=== PATIENT | female | born 2000 | race Caucasian/White ===

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

== ENCOUNTER 2020-01-06 18:36 | Emergency (ER) | payer MEDICAID ==
[2020-01-06] MEDS ORDERED: ONDANSETRON 4 MG TAB.RAPDIS PO ONE (19:03)
--- NOTE | 2020-01-06 19:05 | ER Document Report ---
ED Medical Screen (RME) - General Chief Complaint: Abdominal Pain Stated Complaint: ABDOMINAL PAIN,NAUSEA Time Seen by Provider: 01/06/20 19:01 Primary Care Provider: FANY STRAUSS DO [Primary Care Provider] - Follow up as needed Mode of Arrival: Ambulatory Information source: Patient Notes: 19-year-old female presents to ED for complaint of right-sided abdominal pain times a week. She states it is a level 2/5 at this time. She states sometimes it is sharp but right now is just dull. She states she has vomited for the last 2 days she vomited twice today. She states she does not have any fever has not had any fever. She does not smoke drink or use any drugs. She does have a history of asthma. She states her last menstrual period was 2 weeks ago. She i s alert oriented respirations regular nonlabored speaking in full sentences. Patient will be treated with some Zofran and the. Area and labs and urine will be obtained. I have greeted and performed a rapid initial assessment of this patient. A comprehensive ED assessment and evaluation of the patient, analysis of test results and completion of medical decision making process will be conducted by an additional ED providers. TRAVEL OUTSIDE OF THE [place] IN LAST 30 DAYS: No - Related Data Allergies/Adverse Reactions: paper tape Allergy (Mild, Uncoded 01/06/20 18:59) Past Medical History - Social History Chew tobacco use (# tins/day): No Frequency of alcohol use: None Drug Abuse: None Pulmonary Medical History: Reports: Hx Asthma Renal/ Medical History: Denies: Hx Peritoneal Dialysis Musculoskeltal Medical History: Reports Hx Musculoskeletal Trauma Psychiatric Medical History: Reports: Hx Attention Deficit Hyperactivity Disorder, Hx Bipolar Disorder, Hx Depression, Hx Schizophrenia - Immunizations Immunizations up to date: Yes Hx Diphtheria, Pertussis, Tetanus Vaccination: Yes - 2018 Physical Exam - Vital signs Vitals: Temp Pulse Resp BP Pulse Ox 99.1 F 109 H 18 135/73 H 99 01/06/20 18:58 01/06/20 18:58 01/06/20 18:58 01/06/20 18:58 01/06/20 18:58 Course - Vital Signs Vital signs: Temp Pulse Resp BP Pulse Ox 99.1 F 109 H 18 135/73 H 99 01/06/20 18:59 01/06/20 18:58 01/06/20 18:58 01/06/20 18:58 01/06/20 18:58 Doctor's Discharge - Discharge Referrals: FANY STRAUSS DO [Primary Care Provider] - Follow up as needed
--- NOTE | 2020-01-06 19:36 | ER Document Report ---
ED GI/ - General Chief Complaint: Abdominal Pain Stated Complaint: ABDOMINAL PAIN,NAUSEA Time Seen by Provider: 01/06/20 19:01 Primary Care Provider: FANY STRAUSS DO [NO LOCAL MD] - Follow up as needed Mode of Arrival: Ambulatory Information source: Patient TRAVEL OUTSIDE OF THE [place] IN LAST 30 DAYS: No - HPI Patient complains to provider of: Abdominal pain - Related Data Allergies/Adverse Reactions: paper tape Allergy (Mild, Uncoded 01/06/20 18:59) Past Medical History - General Information source: Patient - Social History Smoking Status: Never Smoker Chew tobacco use (# tins/day): No Frequency of alcohol use: None Drug Abuse: None Lives with: Family Family History: Reviewed & Not Pertinent Patient has homicidal ideation: No Pulmonary Medical History: Reports: Hx Asthma Renal/ Medical History: Denies: Hx Peritoneal Dialysis Musculoskeletal Medical History: Reports Hx Musculoskeletal Trauma Psychiatric Medical History: Reports: Hx Attention Deficit Hyperactivity Disorder, Hx Bipolar Disorder, Hx Depression, Hx Schizophrenia - Immunizations Immunizations up to date: Yes Hx Diphtheria, Pertussis, Tetanus Vaccination: Yes - 2018 Review of Systems - Review of Systems Constitutional: No symptoms reported Cardiovascular: No symptoms reported Respiratory: No symptoms reported Gastrointestinal: Abdominal pain, Nausea, Vomiting Genitourinary: No symptoms reported Female Genitourinary: No symptoms reported -: Yes All other systems reviewed and negative Physical Exam - Vital signs Vitals: Temp Pulse Resp BP Pulse Ox 99.1 F 109 H 18 135/73 H 99 01/06/20 18:58 01/06/20 18:58 01/06/20 18:58 01/06/20 18:58 01/06/20 18:58 - General General appearance: Appears well, Alert In distress: Mild - HEENT Head: Normocephalic, Atraumatic Eyes: Normal Pupils: PERRL - Respiratory Respiratory status: No respiratory distress Chest status: Nontender Breath sounds: Normal Chest palpation: Normal - Cardiovascular Rhythm: Tachycardia Heart sounds: Normal auscultation Murmur: No Friction rub: No Normal capillary refill: Yes - Abdominal Inspection: Obese Distension: No distension Bowel sounds: Normal Tenderness: Tender - Tender to palpation to RUQ no guarding, no rebound,, [place]'s sign. No: Guarding, Rebound Organomegaly: No organomegaly - Back Back: Normal, Nontender. No: CVA tenderness - Neurological Neuro grossly intact: Yes Cognition: Normal Orientation: AAOx4 [place] Coma Scale Eye Opening: Spontaneous [place] Coma Scale Verbal: Oriented Debora Coma Scale Motor: Obeys Commands [place] Coma Scale Total: 15 Speech: Normal Motor strength normal: LUE, RUE, LLE, RLE Sensory: Normal - Skin Skin Temperature: Warm Skin Moisture: Dry Skin Color: Normal Course - Re-evaluation Re-evalutation: 01/06/20 21:42 Patient resting comfortably decreased pain, able to tolerate po fluids, reviewed all lab and ultrasound results with patient. Counseled on bland diet, outpatient follow up with General Surgery as discussed, medications as prescribed, Given strict return to the emergency room, return for any new or worsening symptoms. All questions were answered. Patient verbalizes understanding and agrees with plan of care. 01/06/20 21:44 - Vital Signs Vital signs: Temp Pulse Resp BP Pulse Ox 99.1 F 109 H 18 135/73 H 99 01/06/20 18:59 01/06/20 18:58 01/06/20 18:58 01/06/20 18:58 01/06/20 18:58 - Laboratory Result Diagrams: 01/06/20 19:30 01/06/20 19:30 Laboratory results interpreted by me: 01/06/20 01/06/20 19:30 19:30 WBC 11.0 H RBC 5.30 H MCV 72 L MCH 23.8 L RDW 17.3 H Sodium 135.8 L - Diagnostic Test Radiology reviewed: Reports reviewed Discharge - Discharge Clinical Impression: Nausea Cholelithiases Qualifiers: Cholecystitis presence: without cholecystitis Biliary obstruction: without biliary obstruction Condition: Stable Disposition: HOME, SELF-CARE Instructions: Gallbladder Disease ([facility]), Low-Fat Diet ([facility]) Additional Instructions: [place] diet, no fatty or greasy foods, Follow up with General surgery, call tomorrow for a follow up appointment. Return for any new or worsening symptoms. Referrals: FANY STRAUSS DO [NO LOCAL MD] - Follow up as needed JAMIL MONTANO MD [ACTIVE STAFF] - Follow up tomorrow (call for a follow up ap [facility] )
[2020-01-06 19:49] LABS: ABSOLUTE BASOPHILS # (AUTO) 0.1 10^3/uL (0.0-0.2); ABSOLUTE EOSINOPHILS # (AUTO) 0.3 10^3/uL (0.0-0.6); ABSOLUTE LYMPHOCYTES (AUTO) 3.3 10^3/uL (0.5-4.7); ABSOLUTE MONOCYTES (AUTO) 0.6 10^3/uL (0.1-1.4); ABSOLUTE NEUT (AUTO) 6.7 10^3/uL (1.7-8.2); BASOPHILS % (AUTO) 0.7 % (0-2); EOSINOPHILS % (AUTO) 2.3 % (0-6); HEMOGLOBIN 12.6 g/dL (12.0-15.5); LYMPHOCYTES % (AUTO) 30.3 % (13-45); MEAN CORPUSCULAR HEMOGLOBIN 23.8 pg (27.0-33.4); MEAN CORPUSCULAR HGB CONC 33.1 g/dL (32.0-36.0); MEAN CORPUSCULAR VOLUME 72 fl (80-97); MONOCYTES % (AUTO) 5.7 % (3-13); PLATELET COUNT 237 10^3/uL (150-450); RED CELL DISTRIBUTION WIDTH 17.3 % (11.5-14.0); TOTAL CELLS COUNTED % (AUTO) 100 %
[2020-01-06 19:49] LABS: APPEARANCE,URINE SLIGHTLY-CLOUDY; BILIRUBIN,URINE NEGATIVE (NEGATIVE); COLOR,URINE YELLOW; GLUCOSE, URINE NEGATIVE (NEGATIVE); KETONES,URINE NEGATIVE (NEGATIVE); PROTEIN,URINE NEGATIVE (NEGATIVE); URINE SPECIFIC GRAVITY 1.024; UROBILINOGEN,URINE NEGATIVE mg/dL (<2.0)
[2020-01-06] MEDS ORDERED: RINGERS SOLUTION,LACTATED 1,000 ML IV ONE (20:03)
[2020-01-06 20:12] LABS: ALKALINE PHOSPHATASE 86 U/L (50-135); ANION GAP 9 (5-19); ASPARTATE AMINO TRANSFERASE 17 U/L (5-30); BILIRUBIN,TOTAL 0.3 mg/dL (0.2-1.3); BLOOD UREA NITROGEN 16 mg/dL (7-20); CALCIUM 9.3 mg/dL (8.4-10.2); CARBON DIOXIDE 26 mmol/L (22-30); CHLORIDE 101 mmol/L (98-107); GLUCOSE 101 mg/dL (75-110); POTASSIUM 4.2 mmol/L (3.6-5.0); TOTAL PROTEIN 7.2 g/dL (6.3-8.2)
--- NOTE | 2020-01-06 21:15 | RADIOLOGY REPORT (SQ) ---
EXAM DESCRIPTION: US ABDOMEN DOPPLER LIMITED COMPLETED DATE/TME: 01/06/2020 20:02 CLINICAL HISTORY: 19 years Female RUQ pain COMPARISON: None. TECHNIQUE: Transabdominal grayscale imaging were performed to evaluate the right upper quadrant. FINDINGS: Fatty infiltration of the liver. Pancreas is partially obscured by bowel gas. The visualized orbits are unremarkable. Aorta is normal in caliber. Contracted gallbladder. Common duct measures 3 mm. Right kidney is unremarkable without hydronephrosis. IMPRESSION: Fatty infiltration of the liver. Contracted gallbladder with stones. No additional evidence of acute process Study is limited by bowel gas
[2020-01-06] MEDS ORDERED: ONDANSETRON ODT 4 MG TAB (6 TAB/ER DISP) PO PRN (21:46)
[2020-01-06 22:25] VITALS: BP 146/77
== END 2020-01-06 22:25 | disposition home or self-care (01) ==
LOC: ER 18:36
DX: K80.20 Calculus of gallbladder without cholecystitis without obstruction (principal); R11.2 Nausea with vomiting, unspecified; R10.11 Right upper quadrant pain; R10.811 Right upper quadrant abdominal tenderness; R00.0 Tachycardia, unspecified; J45.909 Unspecified asthma, uncomplicated; Z91.048 Other nonmedicinal substance allergy status
CPT/HCPCS: 99284; 96360; 36415; 82150; 83690; 85025; 81025; 80053; 81001; 76705; 93976; S0119; J7120

== ENCOUNTER 2020-02-13 11:34 | Day surgery (SDC) | payer MEDICAID ==
[~2020-02-13 11:34] MED LIST: ACETAMINOPHEN 325 MG TABLET PO PRN; CEFAZOLIN 1 GM/D5W RTU 1 GM/50 ML RTUPB IV PRN; DEXAMETHASONE SOD PHOSPHATE INJ 4 MG/1 ML VIAL ONE; GLYCOPYRROLATE 1 MG/5 ML VIAL ONE; NEOSTIGMINE METHYLSULFATE 10 MG/10 ML VIAL ONE; ONDANSETRON HCL INJ/PF 4 MG/2 ML SDV ONE; ROCURONIUM BROMIDE INJ 50 MG/5 ML VIAL IV ONE; SUCCINYLCHOLINE CHLORIDE INJ 200 MG/10 ML VIAL ONE
[2020-02-13] MEDS ORDERED: CEFAZOLIN 1 GM/D5W RTU 1 GM/50 ML RTUPB IV ONE (11:47)
[2020-02-13] MEDS ORDERED: FENTANYL CITRATE INJ/PF 250 MCG/5 ML AMPULE ONE (12:34)
[2020-02-13] MEDS ORDERED: MIDAZOLAM 2 MG/2 ML INJ ONE (12:34)
[2020-02-13] MEDS ORDERED: PROPOFOL INJ 200 MG/20 ML VIAL IV ONE (12:34)
[2020-02-13] MEDS ORDERED: BUPIVACAINE HCL 0.25 % INJ/PF (2.5 MG/1 ML) 30 ML VIAL ONE (12:38)
[2020-02-13] MEDS ORDERED: DIPHENHYDRAMINE HCL 50 MG/ML VIAL IV PRN (13:26)
[2020-02-13] MEDS ORDERED: FENTANYL CITRATE INJ/PF 100 MCG/2 ML AMPUL IV PRN ×3 (13:26)
[2020-02-13] MEDS ORDERED: PROMETHAZINE HCL INJ 25 MG/1 ML VIAL IV PRN ×2 (13:26)
[2020-02-13] MEDS ORDERED: OXYCODONE-ACETAMINOPHEN 5-325 MG TABLET PO PRN ×3 (13:26→14:06)
[2020-02-13] MEDS ORDERED: MEPERIDINE HCL/PF INJ 25 MG/1 ML DISP.SYRIN IV PRN (13:26)
--- NOTE | 2020-02-13 13:55 | Operative Report ---
Operative Report DATE OF SURGERY: 02/13/20 PREOPERATIVE DIAGNOSIS: Symptomatic cholelithiasis with cholecystitis POSTOPERATIVE DIAGNOSIS: Same OPERATION: Laparoscopic cholecystectomy SURGEON: SHIRA GARCIA PUNCH OUT CREW MEMBER: NEFTALI MIRELES ANESTHESIA: GA TISSUE REMOVED OR ALTERED: 1 gallbladder with contents COMPLICATIONS: None ESTIMATED BLOOD LOSS: Scant INTRAOPERATIVE FINDINGS: See below PROCEDURE: After obtaining informed consent, the patient was taken to the operating room. General Anesthesia was induced; the arms were extended, and the abdomen was exposed, and prepped and draped in a sterile fashion. Instrumentation was set up for laparoscopic cholecystectomy. Surgical plan and surgical timeout were conducted. A vertical incision was made above the umbilicus, and a verres needle was inserted uneventfully into the peritoneal cavity. Pneumoperitoneum was established. The verres needle was removed and a 5 mm trocar was inserted and a 5 mm flexible laparoscope was inserted. Visualization of the peritoneal cavity confirmed safe uneventful entry. Under direct visualization 2 additional 5 mm ports were established, one in the subxiphoid position and second in the subcostal position. A grasper was placed on the fundus of the gallbladder and the gallbladder is elevated over the right surface of the liver; a second grasper was used to grasp the infundibulum of the gallbladder. Visualization of the hepato biliary area anatomy appeared normal. Visualization was somewhat challenging due to the patient's weight and her abdominal fat; the neck of the gallbladder and junction with the cystic duct was dissected out. The Cystic artery was in its usual location, medial and cephalad to the cystic duct. The cystic artery was surrounded with a right angle clamp, clipped twice proximally, once distally and divided with laparoscopic scissors. We now opened the triangle of [place] by dividing the peritoneal reflection on both the medial and lateral sides of the cystic duct infundibular junction. The critical view was obtained. Photos were taken. 2 small holes were made in the cystic duct during dissection. For this reason we elected to take the gallbladder down from the fundus. This was done using the top-down approach. Eventually we had the gallbladder suspended solely from the cystic duct. Photos taken. A 0 PDS Endoloop was placed on the gallbladder side of the cystic duct and secured. The cystic duct was now transected. The gallbladder was moved to the side, and a second Endoloop was placed on the cystic duct stump, proximal to the 2 small holes previously referenced. We took pictures of the cystic duct with the secured Endoloop in position. Graspers were repositioned and the gallbladder was removed uneventfully from the abdominal cavity through the super umbilical port site incision. The specim en was examined, then passed off to pathology for permanent analysis. We returned to the peritoneal cavity check for bleeding, and evidence of bile leak, and there was none. We Confirmed satisfactory placement of clips on cystic duct and cystic artery were secured . Final photos were obtained. At this point we felt the operation was complete. The subcutaneous tissue was then anesthetized with quarter percent Marcaine Sponge and needle counts are correct. All ports removed under direct visualization pneumoperitoneum evacuated, and 5 mm port wounds closed with 3-0 Vicryl suture, benzoin and Steri-Strips. The patient was extubated, and taken to the recovery room in stable condition. The physician daycare assistant, Ms. Godwin, provided assistance during this case by: Assisting and port insertion, retracting tissue, instillation of local anesthesia and closure of skin incisions.
--- NOTE | 2020-02-13 14:06 | Discharge Summary ---
Discharge Summary (SDC) - Discharge Final Diagnosis: Cholelithiasis Date of Surgery: 02/13/20 Discharge Date: 02/13/20 Condition: Good Treatment or Instructions: [facility] [address] [place] [id number] Discharge Instructions: Laparoscopic Surgery 1. General Information: a. DO NOT DRIVE a car or operate dangerous machinery for 3-4 days or while taking narcotic pain pills. b. DO NOT consume alcohol, tranquilizers, sleeping medications or any non- prescribed medications for 24 hours unless approved by your doctor or as long as taking narcotic prescription medications. c. DO NOT make important decisions or sign any important papers for the first 24 hours after surgery. d. When discharged home the same day of surgery have a responsible person with you for the first night. 2. Activity Restrictions: 2 weeks . a. NO heavy lifting, straining abdominal muscles, bending over a lot, yard work, house work, or sports for [address] for 3-4 days. c. It is fine to go for walks, up and down steps, ride in a car. d. Elevate your head when sleeping/resting. 3. Treatment: a. You may shower 24 hours after surgery, no baths or swimming for 2 weeks. Remove band-aids or dressings before shower but leave paper strips (steri- strips) on the skin to fall off on their own. If still on at postoperative visit they will be removed then. b. Drainage of fluid or blood is not unusual from an incision. If occurs, you can clean with peroxide and cotton ball daily and cover with dry gauze until the wound seals. c. If a lot of bleeding occurs, you can hold pressure with a gauze or cloth over the site for 10 minutes and it will usually stop. If bleeding continues you will need to call for possible evaluation in office or emergency room. 4. Medications: a. __Toradol__ may be taken for pain as needed, one tablet every 6 hours. Do not take additional NSAIDs with Toradol. You may take Tylenol as needed. b. You should resume all normal medications unless a change is specified by your doctors. 5. Diet: Begin with clear liquids and may progress to your normal diet if not nauseated. No high fat, high protein foods the day of surgery. 6. The following may occur after laparoscopic surgery: a. Shoulder or upper back ache from retained gas that should resolve in 1-2 days b. Soreness and bruising at incision sites will resolve with time. c. Scrotal swelling (labia in women) and bruising is often seen after hernia surgery. d. Sore throat e. Fatigue may last days to weeks. f. Difficulty urinating may occur and may need to come into emergency room for urinary catheter placement. 7. Notify Physician If: a. Worsening or pain not improved with pain medication b. Persistent nausea and vomiting c. Fever above 101 d. Persistent bleeding or swelling at operative site e. Unable to urinate and uncomfortable bladder 6-8 hours after surgery 8..Follow Up Care: a. Schedule a follow up appointment with your doctor for 2 weeks. In the event of any postoperative problems or questions or you may call the office during business hours or the On-Call physician evenings and weekends at [facility]. [facility] I understand the instructions for my postoperative care as described above and a copy has been given to me. Patient/Significant Other Witness Date Prescriptions: Ketorolac Tromethamine [Toradol 10 mg Tablet] 10 mg PO Q6HP PRN #20 tablet PRN Reason: Referrals: DANIEL SCOTT NP [Primary Care Provider] - Discharge Diet: Other (Comments) - start clear liquids and low fat Discharge Activity: Balance Activity w/Rest, No Lifting Over 10 Pounds, No Lifting/Push/Pulling, Walk Frequently Report the Following to Your Physician Immediately: Nausea, Vomiting, Increase in Pain, Fever over 101 Degrees, Unusual Bleeding, Redness, Swelling, Warmth, Increased Soreness
[2020-02-13] MEDS: FENTANYL CITRATE INJ/PF 100 MCG/2 ML AMPUL ONE ×2 (14:07→14:12)
[2020-02-13] MEDS ORDERED: KETOROLAC TROMETHAMINE INJ/PF 30 MG/1 ML SDV ONE (14:07)
[2020-02-13] MEDS ORDERED: ALBUTEROL SULFATE 0.083% NEB 2.5 MG/3 ML AMPUL NEB ONE (14:17)
[2020-02-13] MEDS ORDERED: PROMETHAZINE HCL INJ 25 MG/1 ML VIAL ONE (15:06)
[2020-02-13] MEDS ORDERED: OXYCODONE-ACETAMINOPHEN 5-325 MG TABLET ONE (15:06)
[2020-02-13 16:44] VITALS: BP 161/89
== END 2020-02-13 16:40 | disposition home or self-care (01) ==
LOC: OROUT 11:34
PROVIDERS: ATTEND Surgery
DX: K80.10 Calculus of gallbladder with chronic cholecystitis without obstruction (principal); J45.909 Unspecified asthma, uncomplicated; E66.9 Obesity, unspecified
CPT/HCPCS: 87635; 81025; 88304 ×2; 00790; 47562; J2250; J0690; J3490 ×3; J1100; J3010 ×2; J1885; J2710; J2550; J0330; J2405; J2704; C9803; 790

== ENCOUNTER 2020-03-10 18:00 | Emergency (ER) | payer MEDICAID ==
[2020-03-10] MEDS ORDERED: NORMAL SALINE 1000 ML 1,000 ML IV ONE (19:26)
[2020-03-10] MEDS ORDERED: METOCLOPRAMIDE HCL 10 MG TABLET PO ONE (19:26)
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
--- NOTE | 2020-03-10 20:21 | RADIOLOGY REPORT (SQ) ---
US PELVIS HISTORY: Early . Pelvic pain. COMPARISON: None. TECHNIQUE: Grayscale, color Doppler, and spectral Doppler ultrasound images of the pelvis were obtained. FINDINGS: There is an intrauterine gestational sac with a yolk sac and pole visualized. The crown-rump length measures 0.27 cm corresponding to 5 weeks 6 days. There is suggestion of heart rate of 118 bpm. Both ovaries are normal in size and contain normal follicles, with the right ovary measuring 1.7 x 1.7 cm and the left ovary measuring 2.7 x 2.6 cm. Normal color Doppler blood flow is seen in both ovaries. There is a 2.1 cm likely corpus luteum cyst in the left ovary. No free fluid is seen. IMPRESSION: 1. Findings suggestive of a single live IUP with estimated gestational age 5 weeks 6 days. 2. 2.1 cm likely corpus luteum cyst in the left ovary, for which no follow-up imaging is needed.
[2020-03-10 20:26] LABS: ABSOLUTE BASOPHILS # (AUTO) 0.1 10^3/uL (0.0-0.2); ABSOLUTE EOSINOPHILS # (AUTO) 0.3 10^3/uL (0.0-0.6); ABSOLUTE LYMPHOCYTES (AUTO) 2.7 10^3/uL (0.5-4.7); ABSOLUTE MONOCYTES (AUTO) 0.7 10^3/uL (0.1-1.4); ABSOLUTE NEUT (AUTO) 6.7 10^3/uL (1.7-8.2); BASOPHILS % (AUTO) 0.6 % (0-2); EOSINOPHILS % (AUTO) 2.7 % (0-6); HEMATOCRIT 36.7 % (36.0-47.0); LYMPHOCYTES % (AUTO) 26.1 % (13-45); MEAN CORPUSCULAR HGB CONC 32.6 g/dL (32.0-36.0); MEAN CORPUSCULAR VOLUME 74 fl (80-97); MONOCYTES % (AUTO) 6.4 % (3-13); PLATELET COUNT 254 10^3/uL (150-450); RED BLOOD COUNT 4.98 10^6/uL (3.72-5.28); RED CELL DISTRIBUTION WIDTH 18.6 % (11.5-14.0); SEGMENTED NEUTROPHILS % (AUTO) 64.2 % (42-78); TOTAL CELLS COUNTED % (AUTO) 100 %; WHITE BLOOD COUNT 10.4 10^3/uL (4.0-10.5)
[2020-03-10 20:52] LABS: ALBUMIN 3.8 g/dL (3.7-5.6); ALKALINE PHOSPHATASE 73 U/L (50-135); ANION GAP 7 (5-19); ASPARTATE AMINO TRANSFERASE 18 U/L (5-30); BILIRUBIN,TOTAL 0.2 mg/dL (0.2-1.3); BLOOD UREA NITROGEN 10 mg/dL (7-20); CALCIUM 9.4 mg/dL (8.4-10.2); CARBON DIOXIDE 26 mmol/L (22-30); CHLORIDE 103 mmol/L (98-107); GLUCOSE 112 mg/dL (75-110); POTASSIUM 4.3 mmol/L (3.6-5.0); TOTAL PROTEIN 6.7 g/dL (6.3-8.2)
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
[2020-03-10 22:31] VITALS: BP 141/75
== END 2020-03-10 22:31 | disposition home or self-care (01) ==
LOC: ER 18:00
DX: O21.9 Vomiting of pregnancy, unspecified (principal); O26.891 Other specified pregnancy related conditions, first trimester; R10.9 Unspecified abdominal pain; R19.7 Diarrhea, unspecified; R10.31 Right lower quadrant pain; R53.1 Weakness; R42 Dizziness and giddiness; R00.0 Tachycardia, unspecified; O99.511 Diseases of the respiratory system complicating pregnancy, first trimester; J45.909 Unspecified asthma, uncomplicated; Z3A.01 Less than 8 weeks gestation of pregnancy
CPT/HCPCS: 99284; 96360; 96361; 36415; 84702; 85025; 80053; 76817; J3490; J7030

== ENCOUNTER 2020-03-21 18:46 | Emergency (ER) | payer OTHER, MEDICAID ==
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
[2020-03-22 02:07] VITALS: BP 131/84
--- NOTE | 2020-03-24 10:11 | RADIOLOGY REPORT (SQ) ---
EXAM DESCRIPTION: HAND 2 VIEWS IMAGES COMPLETED DATE/TIME: 03/24/2020 9:51 am REASON FOR STUDY: WRONG HAND IMAGES COMPARISON: None. EXAM PARAMETERS: NUMBER OF VIEWS: Two view. TECHNIQUE: AP and lateral radiographic images acquired of the right hand. LIMITATIONS: None. FINDINGS: MINERALIZATION: Normal. BONES: No acute fracture or dislocation. No worrisome bone lesions. No significant osteophytes. JOINTS: No erosions. No herman-articular osteopenia. No chondrocalcinosis. SOFT TISSUES: No swelling. No calcifications. OTHER: No other significant finding. IMPRESSION: Negative two views of the right hand. TECHNICAL DOCUMENTATION: JOB ID: [id number] 2010 [employer]- All Rights Reserved Reading location - IP/workstation name: [email or web address]
== END 2020-03-22 02:06 | disposition home or self-care (01) ==
LOC: ER 18:46
DX: O26.91 Pregnancy related conditions, unspecified, first trimester (principal); S39.81XA Other specified injuries of abdomen, initial encounter; S60.051A Contusion of right little finger without damage to nail, initial encounter; V89.2XXA Person injured in unspecified motor-vehicle accident, traffic, initial encounter; Z3A.08 8 weeks gestation of pregnancy
CPT/HCPCS: 99283

== ENCOUNTER 2020-05-01 19:36 | Emergency (ER) | payer MEDICAID, OTHER ==
[2020-05-01] MEDS ORDERED: NORMAL SALINE 1000 ML 1,000 ML IV ONE (20:20)
--- NOTE | 2020-05-01 20:21 | ER Document Report ---
ED Medical Screen (RME) - General Chief Complaint: Vaginal Pain Stated Complaint: VAGINAL PROBLEM Time Seen by Provider: 05/01/20 20:16 Primary Care Provider: DANIEL SCOTT NP [Primary Care Provider] - Follow up as needed Mode of Arrival: Ambulatory Information source: Patient Notes: Patient presents 13 weeks G2, P1. Patient reports right lower pelvic pain that started today. Patient states pain is been off and on throughout the day. Patient denies any fever or urinary symptoms. Patient denies any vaginal bleeding or discharge. Patient reports nausea and vomiting x1 episode. I have greeted and performed a rapid initial assessment of this patient. A comprehensive ED assessment and evaluation of the patient, analysis of test results and completion of the medical decision making process will be conducted by additional ED providers. TRAVEL OUTSIDE OF THE [place] IN LAST 30 DAYS: No - Related Data Allergies/Adverse Reactions: paper tape Allergy (Mild, Uncoded 03/10/20 19:20) Past Medical History - Past Medical History Cardiac Medical History: Denies: Hx Coronary Artery Disease, Hx Heart Attack, Hx Hypertension Pulmonary Medical History: Reports: Hx Asthma - USES INHALERS Denies: Hx Bronchitis, Hx COPD, Hx Pneumonia Neurological Medical History: Denies: Hx Cerebrovascular Accident, Hx Seizures Renal/ Medical History: Denies: Hx Peritoneal Dialysis Musculoskeltal Medical History: Denies Hx Arthritis, Reports Hx Musculoskeletal Trauma Psychiatric Medical History: Reports: Hx Attention Deficit Hyperactivity Disorder, Hx Bipolar Disorder, Hx Depression, Hx Schizophrenia - Immunizations Immunizations up to date: Yes Hx Diphtheria, Pertussis, Tetanus Vaccination: Yes - 2017 Physical Exam - Vital signs Vitals: Temp Pulse Resp BP Pulse Ox 98.2 F 103 H 20 142/62 H 100 05/01/20 19:59 05/01/20 19:59 05/01/20 19:59 05/01/20 19:59 05/01/20 19:59 - Abdominal Inspection: Gravid female, Morbidly Obese Tenderness: Tender - Right lower pelvic tenderness Course - Vital Signs Vital signs: Temp Pulse Resp BP Pulse Ox 98.2 F 103 H 20 142/62 H 100 05/01/20 19:59 05/01/20 19:59 05/01/20 19:59 05/01/20 19:59 05/01/20 19:59 Doctor's Discharge - Discharge Referrals: WITTLER,DANIEL, BOOKKEEPERS SUPERVISOR [Primary Care Provider] - Follow up as needed
[2020-05-01 21:16] LABS: ABSOLUTE EOSINOPHILS # (AUTO) 0.2 10^3/uL (0.0-0.6); ABSOLUTE LYMPHOCYTES (AUTO) 2.2 10^3/uL (0.5-4.7); ABSOLUTE MONOCYTES (AUTO) 0.5 10^3/uL (0.1-1.4); ABSOLUTE NEUT (AUTO) 6.1 10^3/uL (1.7-8.2); BASOPHILS % (AUTO) 0.5 % (0-2); EOSINOPHILS % (AUTO) 2.7 % (0-6); HEMATOCRIT 36.3 % (36.0-47.0); HEMOGLOBIN 11.8 g/dL (12.0-15.5); LYMPHOCYTES % (AUTO) 24.3 % (13-45); MEAN CORPUSCULAR HEMOGLOBIN 24.8 pg (27.0-33.4); MEAN CORPUSCULAR HGB CONC 32.6 g/dL (32.0-36.0); MEAN CORPUSCULAR VOLUME 76 fl (80-97); MONOCYTES % (AUTO) 5.9 % (3-13); PLATELET COUNT 201 10^3/uL (150-450); RED BLOOD COUNT 4.78 10^6/uL (3.72-5.28); RED CELL DISTRIBUTION WIDTH 17.7 % (11.5-14.0); SEGMENTED NEUTROPHILS % (AUTO) 66.6 % (42-78); TOTAL CELLS COUNTED % (AUTO) 100 %; WHITE BLOOD COUNT 9.2 10^3/uL (4.0-10.5)
--- NOTE | 2020-05-01 21:17 | RADIOLOGY REPORT (SQ) ---
EXAM DESCRIPTION: US LESS THAN 14 WEEKS COMPLETED DATE/TME: 05/01/2020 20:18 CLINICAL HISTORY: 20 years, Female, RLQ pain COMPARISON: Prior pelvic ultrasound dated 04/18/2019 TECHNIQUE: Axial 2-D grayscale images of the pelvis were acquired. Doppler was utilized. LIMITATIONS: None. FINDINGS: Uterus measures 12.3 x 10.0 x 8.4 cm in size. Cervix is closed, measuring 2.6 cm in length. A single intrauterine gestational sac is identified with measurements as follows: [place]-rump length: 7.6 cm heart rate is 158 bpm Estimated gestational age is 13 weeks and 4 days for an estimated date of delivery of 11/02/2020 Right ovary measures 4.8 x 2.9 x 3.3 cm in size. It demonstrates normal echogenicity and normal low resistance arterial waveforms/venous flow. Left ovary measures 3.4 x 2.5 x 2.4 cm in size. It also demonstrates normal echogenicity and normal low resistance arterial waveforms/venous flow. No significant free fluid is identified within the imaged pelvis. IMPRESSION: Single live intrauterine , as above described. No acute findings. However, cervical length is borderline short at 2.6 cm. copyright 2010 [employer] All Rights Reserved
[2020-05-01 21:27] LABS: APPEARANCE,URINE CLOUDY; BILIRUBIN,URINE NEGATIVE (NEGATIVE); GLUCOSE, URINE NEGATIVE (NEGATIVE); KETONES,URINE NEGATIVE (NEGATIVE); LEUKOCYTE ESTERASE,URINE MODERATE (NEGATIVE); NITRITE,URINE NEGATIVE (NEGATIVE); PROTEIN,URINE NEGATIVE (NEGATIVE); URINE SPECIFIC GRAVITY 1.024; UROBILINOGEN,URINE NEGATIVE mg/dL (<2.0)
[2020-05-01 21:32] LABS: ADD MANUAL MICROSCOPIC YES; COLOR,URINE YELLOW
[2020-05-01 21:33] LABS: ALBUMIN 3.7 g/dL (3.5-5.0); ALKALINE PHOSPHATASE 69 U/L (38-126); ANION GAP 9 (5-19); ASPARTATE AMINO TRANSFERASE 16 U/L (14-36); BACTERIA,URINE TRACE /HPF; BILIRUBIN,DIRECT 0.3 mg/dL (0.0-0.4); BILIRUBIN,TOTAL 0.3 mg/dL (0.2-1.3); BLOOD UREA NITROGEN 10 mg/dL (7-20); CALCIUM 9.7 mg/dL (8.4-10.2); CARBON DIOXIDE 25 mmol/L (22-30); CHLORIDE 104 mmol/L (98-107); GLUCOSE 89 mg/dL (75-110); POTASSIUM 4.7 mmol/L (3.6-5.0); RBC,URINE NONE SEEN /HPF; TOTAL PROTEIN 6.5 g/dL (6.3-8.2)
--- NOTE | 2020-05-01 22:49 | ER Document Report ---
ED General - General Chief Complaint: Abdominal Pain Stated Complaint: VAGINAL PROBLEM Time Seen by Provider: 05/01/20 20:16 Primary Care Provider: DANIEL SCOTT NP [NURSE PRACTITIONER] - Follow up as needed Mode of Arrival: Ambulatory TRAVEL OUTSIDE OF THE [place] IN LAST 30 DAYS: No - HPI Notes: Patient is a 20-year-old female who presents the emergency department for evaluation. She is approximately 13 weeks , she presents for sudden onset of right pelvic pain. She described it as sharp and stabbing occasionally, but it is a constant very dull ache. Nothing seems to make it better or worse. She tried Tylenol without significant relief. She denies any associated vaginal discharge or vaginal bleeding. She has been seen by the health department, states she had a pelvic exam as well as gonorrhea and chlamydial testing which were negative. She has had some nausea and vomiting, which has been normal throughout her . - Related Data Allergies/Adverse Reactions: paper tape Allergy (Mild, Uncoded 03/10/20 19:20) Home Medications: , unisom, allergy med, vit b6 Past Medical History - General Information source: Patient - Social History Smoking Status: Never Smoker Family History: Reviewed & Not Pertinent - Past Medical History Cardiac Medical History: Denies: Hx Coronary Artery Disease, Hx Heart Attack, Hx Hypertension Pulmonary Medical History: Reports: Hx Asthma - USES INHALERS Denies: Hx Bronchitis, Hx COPD, Hx Pneumonia Neurological Medical History: Denies: Hx Cerebrovascular Accident, Hx Seizures Renal/ Medical History: Denies: Hx Peritoneal Dialysis Musculoskeletal Medical History: Denies Hx Arthritis, Reports Hx Musculoskeletal Trauma Psychiatric Medical History: Reports: Hx Attention Deficit Hyperactivity Disorder, Hx Bipolar Disorder, Hx Depression, Hx Schizophrenia - Immunizations Immunizations up to date: Yes Hx Diphtheria, Pertussis, Tetanus Vaccination: Yes - 2018 Review of Systems - Review of Systems Constitutional: No symptoms reported EENT: No symptoms reported Cardiovascular: No symptoms reported Respiratory: No symptoms reported Gastrointestinal: See HPI Genitourinary: No symptoms reported Female Genitourinary: See HPI Musculoskeletal: No symptoms reported Skin: No symptoms reported Neurological/Psychological: No symptoms reported Physical Exam - Vital signs Vitals: Temp Pulse Resp BP Pulse Ox 98.2 F 103 H 20 142/62 H 100 05/01/20 19:59 05/01/20 19:59 05/01/20 19:59 05/01/20 19:59 05/01/20 19:59 - Notes Notes: This is a morbidly obese female who appears her stated age, no acute distress. Vital signs reviewed, please refer to chart. Head is normocephalic, atraumatic. Pupils equal round, reactive to light. Neck is supple without meningismus. Heart is regular rate and rhythm. Lungs are clear to auscultation bilaterally. Abdomen is obese, nontender, normoactive bowel sounds throughout. Extremities without cyanosis, clubbing. Posterior calves are nontender. Peripheral pulses are equal. Skin is warm and dry. Patient is awake, alert, neurological exam is nonfocal. Course - Re-evaluation Re-evalutation: 05/01/20 22:51 Patient presents to the emergency department for evaluation. She had laboratory investigations over through triage. Imaging revealed a normal intrauterine gestation, normal ovaries, there was some cervical shortening. I explained this to the patient, but certainly there is nothing to do about that at this point. I also talked her about her blood pressure being elevated. She needs to continue to keep an eye on this, follow up closely with OB, she may warrant treatment for gestational hypertension. She voiced understanding. Otherwise, she is to return the emergency department worsening or new concerning symptoms of any sort. - Vital Signs Vital signs: Temp Pulse Resp BP Pulse Ox 98.2 F 103 H 20 142/62 H 100 05/01/20 19:59 05/01/20 19:59 05/01/20 19:59 05/01/20 19:59 05/01/20 19:59 - Laboratory Result Diagrams: 05/01/20 20:57 05/01/20 20:57 Laboratory results interpreted by me: 05/01/20 05/01/20 20:57 20:57 Hgb 11.8 L MCV 76 L MCH 24.8 L RDW 17.7 H Ur Leukocyte Esterase MODERATE H Urine Ascorbic Acid 20 H - Diagnostic Test Radiology reviewed: Reports reviewed Radiology results interpreted by me: 05/01/20 22:52 Obstetrics Ultrasound 05/01/20 20:18 IMPRESSION: Single live intrauterine , as above described. No acute findings. However, cervical length is borderline short at 2.6 cm. copyright 2011 [employer] All Rights Reserved Discharge - Discharge Clinical Impression: Abdominal pain affecting , Elevated blood pressure affecting in second trimester, antepartum Condition: Stable Disposition: HOME, SELF-CARE Instructions: Pelvic Pain in and Round Ligament Pain ([facility]) Additional Instructions: Your blood pressure was elevated here today. Please keep a record of that at home as discussed, and discussed this with your OB during your appointment next week. Your ultrasound and blood work failed to reveal any significant abnormalities. Tylenol as needed for pain. Follow-up with OB as scheduled. If you develop increased pain, vaginal bleeding, or any other new or concerning sym ptoms, please return immediately to the ER for further evaluation. Referrals: DANIEL SCOTT, DIRECTOR OF FINANCIAL PLANNING [NURSE PRACTITIONER] - Follow up as needed
[2020-05-01 22:51] LABS: CHLAM PCR NOT DETECTED (NOT DETECT)
[2020-05-01 23:52] VITALS: BP 141/78
== END 2020-05-01 23:24 | disposition home or self-care (01) ==
LOC: ER 19:36
DX: O26.892 Other specified pregnancy related conditions, second trimester (principal); R10.2 Pelvic and perineal pain; O16.2 Unspecified maternal hypertension, second trimester; O21.9 Vomiting of pregnancy, unspecified; O99.212 Obesity complicating pregnancy, second trimester; E66.01 Morbid (severe) obesity due to excess calories; O99.512 Diseases of the respiratory system complicating pregnancy, second trimester; J45.909 Unspecified asthma, uncomplicated; Z79.899 Other long term (current) drug therapy; Z91.048 Other nonmedicinal substance allergy status; Z3A.00 Weeks of gestation of pregnancy not specified
CPT/HCPCS: 36415; 76801; 80053; 81001; 85025; 87491; 87591; 99284

== ENCOUNTER 2020-06-22 23:22 | Emergency (ER) | payer MEDICAID ==
--- NOTE | 2020-06-23 00:58 | ER Document Report ---
ED General - General Chief Complaint: Constipation Stated Complaint: CONSTIPATION,ABDOMNAL PAIN Time Seen by Provider: 06/23/20 00:43 Primary Care Provider: [facility] [Provider Group] - Follow up as needed Mode of Arrival: Ambulatory Information source: Patient TRAVEL OUTSIDE OF THE [place] IN LAST 30 DAYS: No - HPI Notes: Patient is a 20-year-old female who is 20 weeks and presents with constipation. Patient states she has not had a bowel movement in 7 days. She tried a suppository earlier this morning with no relief. Patient states she had constipation in her first and had relief with suppositories. She reports abdominal discomfort and pressure. She also endorses nausea and vomiting but states this has been normal throughout . She denies chest pain, shortness of breath, fever, and dysuria. Patient reports a history of preeclampsia in her first and has had high blood pressure so far with this . - Related Data Allergies/Adverse Reactions: paper tape Allergy (Mild, Uncoded 03/10/20 19:20) Home Medications: asthma Past Medical History - General Information source: Patient - Social History Smoking Status: Never Smoker Frequency of alcohol use: None Drug Abuse: None Family History: Reviewed & Not Pertinent Patient has homicidal ideation: No - Past Medical History Cardiac Medical History: Denies: Hx Coronary Artery Disease, Hx Heart Attack, Hx Hypertension Pulmonary Medical History: Reports: Hx Asthma - USES INHALERS Denies: Hx Bronchitis, Hx COPD, Hx Pneumonia Neurological Medical History: Denies: Hx Cerebrovascular Accident, Hx Seizures Renal/ Medical History: Denies: Hx Peritoneal Dialysis Musculoskeletal Medical History: Denies Hx Arthritis, Reports Hx Musculoskeletal Trauma Psychiatric Medical History: Reports: Hx Attention Deficit Hyperactivity Disorder, Hx Bipolar Disorder, Hx Depression, Hx Schizophrenia - Immunizations Immunizations up to date: Yes Hx Diphtheria, Pertussis, Tetanus Vaccination: Yes - 2018 Review of Systems - Review of Systems Constitutional: No symptoms reported EENT: No symptoms reported Cardiovascular: No symptoms reported Respiratory: No symptoms reported Gastrointestinal: See HPI Genitourinary: No symptoms reported Female Genitourinary: No symptoms reported Musculoskeletal: No symptoms reported Skin: No symptoms reported Hematologic/Lymphatic: No symptoms reported Neurological/Psychological: No symptoms reported Physical Exam - Vital signs Vitals: Temp Pulse Resp BP Pulse Ox 97.8 F 114 H 18 148/82 H 99 06/22/20 23:31 06/22/20 23:31 06/22/20 23:31 06/22/20 23:31 06/22/20 23:31 - Notes Notes: PHYSICAL EXAMINATION: VITALS: Vitals reviewed and tachycardia noted. GENERAL: Well-appearing, well-nourished and in no acute distress. HEAD: Atraumatic, normocephalic. ENT: Nares patent. Moist mucous membranes. Oropharynx clear without exudates. LUNGS: Breath sounds clear to auscultation bilaterally and equal. No wheezes rales or rhonchi. HEART: Tachycardia with regular rhythm without murmurs. ABDOMEN: Soft, nontender, normoactive bowel sounds. No guarding, no rebound. No masses appreciated. EXTREMITIES: Normal range of motion, no pitting or edema. No cyanosis. NEUROLOGICAL: No focal neurological deficits. Moves all extremities spontaneously and on command. PSYCH: Normal mood, normal affect. SKIN: Warm, Dry, normal turgor, no rashes or lesions noted. Course - Re-evaluation Re-evalutation: 06/23/20 00:58 patient is a 20-year-old female who is 20 weeks and presents with constipation. She has not had a bowel movement in 7 days even after attempts of using a suppository. Patient is tachycardic with a HR 114, vital signs are otherwise unremarkable. On exam, abdomen is soft, nontender with normoactive BS in all four quadrants. I consulted with my supervising physician, Dr. Lux concerning this patient and she recommends soapsuds enema with Miralax and colace at home. I discussed the option for enema with the patient and she is in agreement. Patient received about 200mls of the enema before she had to go. She is reporting a large bowel movement with significant relief. I recommended she take Miralax and colace over the counter for continued relief and to increase her fiber and fluid intake. Patient will be discharged home. Return precautions and follow up instructions given. Patient understands and is in agreement with plan. - Vital Signs Vital signs: Temp Pulse Resp BP Pulse Ox 97.9 F 95 18 142/80 H 99 06/23/20 02:45 06/23/20 02:45 06/23/20 02:45 06/23/20 02:45 06/23/20 02:45 Discharge - Discharge Clinical Impression: Qualifiers: Weeks of gestation: 20 weeks Qualified Code(s): Z3A.20 - 20 weeks gestation of Constipation during Qualifiers: Trimester: second trimester Qualified Code(s): O99.612 - Diseases of the digestive system complicating , second trimester Condition: Stable Disposition: HOME, SELF-CARE Instructions: Constipation ([facility]) Additional Instructions: Take Miralax and colace over the counter for constipation. Increase your fiber and fluid intake. Follow up with your TOOL ROOM ATTENDANT this week. Referrals: [facility] [Provider Group] - Follow up as needed
[2020-06-23 03:02] VITALS: BP 142/80
== END 2020-06-23 03:02 | disposition home or self-care (01) ==
LOC: ER 23:22
DX: O99.612 Diseases of the digestive system complicating pregnancy, second trimester (principal); K59.00 Constipation, unspecified; O21.2 Late vomiting of pregnancy; O26.892 Other specified pregnancy related conditions, second trimester; R00.0 Tachycardia, unspecified; O16.2 Unspecified maternal hypertension, second trimester; O99.512 Diseases of the respiratory system complicating pregnancy, second trimester; J45.909 Unspecified asthma, uncomplicated; Z79.899 Other long term (current) drug therapy; Z91.048 Other nonmedicinal substance allergy status; Z3A.20 20 weeks gestation of pregnancy
CPT/HCPCS: 99282

== ENCOUNTER 2020-06-30 16:51 | Emergency (ER) | payer MEDICAID ==
[2020-06-30 17:03] VITALS: BP 144/86
== END 2020-06-30 17:46 | disposition left against medical advice (07) ==
LOC: ER 16:51
DX: Z53.21 Procedure and treatment not carried out due to patient leaving prior to being seen by health care provider (principal); K59.00 Constipation, unspecified; R19.5 Other fecal abnormalities

== ENCOUNTER 2020-08-06 14:14 | Emergency (ER) | payer MEDICAID ==
--- NOTE | 2020-08-06 14:56 | ER Document Report ---
ED Medical Screen (RME) - General Chief Complaint: Abdominal Pain Stated Complaint: ABDOMINAL PAIN,RECTAL PAIN Time Seen by Provider: 08/06/20 14:49 Primary Care Provider: FANY STRAUSS DO [Primary Care Provider] - Follow up as needed TRAVEL OUTSIDE OF THE [place] IN LAST 30 DAYS: No - HPI Notes: 08/06/20 14:54 20-year-old female to the emergency department with complaints of progressively worsening rectal pain, constipation, lower abdominal pain for the past 11 days. She is 25 weeks and has really been struggling with constipation in this . She states that she has been taking laxatives and MiraLAX and she has not had a bowel movement for 11 days. She has been before and does not feel like this is contractions. She denies any vaginal bleeding. She denies any fevers or chills. She admits to nausea but denies vomiting. She states that she feels like she is going to have diarrhea but still has not had any effective movements. She states her rectum is very painful. 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 Brief medical screening exam reveals an obese gravid female with mild tenderness to palpation to the lower abdomen. She is very uncomfortable and standing swelling in triage. She states that her pain is predominantly within her rectum. I performed a brief medical screening exam on the patient determined that the patient needs further evaluation and management by main side provider. I have placed initial orders to help expedite care. - Related Data Allergies/Adverse Reactions: paper tape Allergy (Mild, Uncoded 03/10/20 19:20) Past Medical History - Social History Chew tobacco use (# tins/day): No Frequency of alcohol use: None Drug Abuse: None - Past Medical History Cardiac Medical History: Denies: Hx Coronary Artery Disease, Hx Heart Attack, Hx Hypertension Pulmonary Medical History: Reports: Hx Asthma - USES INHALERS Denies: Hx Bronchitis, Hx COPD, Hx Pneumonia Neurological Medical History: Denies: Hx Cerebrovascular Accident, Hx Seizures Renal/ Medical History: Denies: Hx Peritoneal Dialysis Musculoskeltal Medical History: Denies Hx Arthritis, Reports Hx Musculoskeletal Trauma Psychiatric Medical History: Reports: Hx Attention Deficit Hyperactivity Disorder, Hx Bipolar Disorder, Hx Depression, Hx Schizophrenia - Immunizations Immunizations up to date: Yes Hx Diphtheria, Pertussis, Tetanus Vaccination: Yes - 2018 Physical Exam - Vital signs Vitals: Temp Pulse Resp BP Pulse Ox 98.5 F 120 H 22 H 132/81 H 100 08/06/20 14:26 08/06/20 14:26 08/06/20 14:26 08/06/20 14:26 08/06/20 14:26 Course - Vital Signs Vital signs: Temp Pulse Resp BP Pulse Ox 98.5 F 120 H 22 H 132/81 H 100 08/06/20 14:26 08/06/20 14:26 08/06/20 14:26 08/06/20 14:26 08/06/20 14:26 Doctor's Discharge - Discharge Referrals: FANY STRAUSS DO [Primary Care Provider] - Follow up as needed
[2020-08-06 16:41] LABS: ABSOLUTE EOSINOPHILS # (AUTO) 0.1 10^3/uL (0.0-0.6); ABSOLUTE LYMPHOCYTES (AUTO) 0.8 10^3/uL (0.5-4.7); ABSOLUTE MONOCYTES (AUTO) 0.7 10^3/uL (0.1-1.4); ABSOLUTE NEUT (AUTO) 10.6 10^3/uL (1.7-8.2); BASOPHILS % (AUTO) 0.2 % (0-2); EOSINOPHILS % (AUTO) 0.5 % (0-6); HEMATOCRIT 35.9 % (36.0-47.0); HEMOGLOBIN 11.7 g/dL (12.0-15.5); LYMPHOCYTES % (AUTO) 6.4 % (13-45); MEAN CORPUSCULAR HEMOGLOBIN 26.2 pg (27.0-33.4); MEAN CORPUSCULAR HGB CONC 32.6 g/dL (32.0-36.0); MEAN CORPUSCULAR VOLUME 80 fl (80-97); MONOCYTES % (AUTO) 6.1 % (3-13); PLATELET COUNT 200 10^3/uL (150-450); RED BLOOD COUNT 4.47 10^6/uL (3.72-5.28); RED CELL DISTRIBUTION WIDTH 16.5 % (11.5-14.0); SEGMENTED NEUTROPHILS % (AUTO) 86.8 % (42-78); TOTAL CELLS COUNTED % (AUTO) 100 %; WHITE BLOOD COUNT 12.2 10^3/uL (4.0-10.5)
[2020-08-06] MEDS ORDERED: LIDOCAINE 4% CREAM 5 GM TUBE TP ONE (16:56)
[2020-08-06 16:57] LABS: ALBUMIN 3.4 g/dL (3.5-5.0); ALKALINE PHOSPHATASE 116 U/L (38-126); ANION GAP 8 (5-19); ASPARTATE AMINO TRANSFERASE 16 U/L (14-36); BILIRUBIN,DIRECT 0.2 mg/dL (0.0-0.4); BILIRUBIN,TOTAL 0.6 mg/dL (0.2-1.3); BLOOD UREA NITROGEN 5 mg/dL (7-20); CALCIUM 9.2 mg/dL (8.4-10.2); CARBON DIOXIDE 22 mmol/L (22-30); CHLORIDE 104 mmol/L (98-107); GLUCOSE 85 mg/dL (75-110); POTASSIUM 4.2 mmol/L (3.6-5.0); TOTAL PROTEIN 6.4 g/dL (6.3-8.2)
--- NOTE | 2020-08-06 17:08 | ER Document Report ---
ED General - General Chief Complaint: Abdominal Pain Stated Complaint: ABDOMINAL PAIN,RECTAL PAIN Time Seen by Provider: 08/06/20 14:49 Primary Care Provider: FANY STRAUSS DO [Primary Care Provider] - Follow up as needed Mode of Arrival: Ambulatory Information source: Patient TRAVEL OUTSIDE OF THE [place] IN LAST 30 DAYS: No - HPI Notes: Patient presents with abdominal pain as well as rectal pain. She states she is currently 27 weeks and that she has had problems with constipation. She states she has had problems with constipation with other pregnancies as well. She has tried multiple [id number] products such as enemas, suppositories, magnesium citrate and Metamucil with no relief. She called her SENIOR MANAGING DIRECTOR today who referred her to the emergency department. Patient states due to the chronic problems with constipation she has developed an anal fissure. He states his anal fissure is a constant pain. Is worse with bowel movements and better without. It is sharp. It is moderate to severe. - Related Data Allergies/Adverse Reactions: paper tape Allergy (Mild, Uncoded 03/10/20 19:20) Past Medical History - General Information source: Patient - Social History Smoking Status: Never Smoker Chew tobacco use (# tins/day): No Frequency of alcohol use: None Drug Abuse: None Family History: Reviewed & Not Pertinent - Past Medical History Cardiac Medical History: Denies: Hx Coronary Artery Disease, Hx Heart Attack, Hx Hypertension Pulmonary Medical History: Reports: Hx Asthma - USES INHALERS Denies: Hx Bronchitis, Hx COPD, Hx Pneumonia Neurological Medical History: Denies: Hx Cerebrovascular Accident, Hx Seizures Renal/ Medical History: Denies: Hx Peritoneal Dialysis Musculoskeletal Medical History: Denies Hx Arthritis, Reports Hx Musculoskeletal Trauma Psychiatric Medical History: Reports: Hx Attention Deficit Hyperactivity Disorder, Hx Bipolar Disorder, Hx Depression, Hx Schizophrenia - Immunizations Immunizations up to date: Yes Hx Diphtheria, Pertussis, Tetanus Vaccination: Yes - 2018 Review of Systems - Review of Systems Constitutional: denies: Chills, Fever Cardiovascular: denies: Chest pain, Palpitations Respiratory: denies: Cough, Short of breath -: Yes All other systems reviewed and negative Physical Exam - Vital signs Vitals: Temp Pulse Resp BP Pulse Ox 98.5 F 120 H 22 H 132/81 H 100 08/06/20 14:26 08/06/20 14:26 08/06/20 14:26 08/06/20 14:26 08/06/20 14:26 Interpretation: Normal - General General appearance: Appears well, Alert - HEENT Head: Normocephalic, Atraumatic Eyes: Normal Pupils: PERRL - Respiratory Respiratory status: No respiratory distress Chest status: Nontender Breath sounds: Normal Chest palpation: Normal - Cardiovascular Rhythm: Tachycardia Heart sounds: Normal auscultation Murmur: No - Abdominal Inspection: Normal Distension: No distension Bowel sounds: Normal Tenderness: Nontender Organomegaly: No organomegaly - Rectal Tenderness: Yes Hemorrhoids: External - Back Back: Normal, Nontender - Extremities General upper extremity: Normal inspection, Nontender, Normal color, Normal ROM, Normal temperature General lower extremity: Normal inspection, Nontender, Normal color, Normal ROM, Normal temperature, Normal weight bearing. No: Liz's sign - Neurological Neuro grossly intact: Yes Cognition: Normal Orientation: AAOx4 [place] Coma Scale Eye Opening: Spontaneous [place] Coma Scale Verbal: Oriented [place] Coma Scale Motor: Obeys Commands Debora Coma Scale Total: 15 Speech: Normal Motor strength normal: LUE, RUE, LLE, RLE Sensory: Normal - Psychological Associated symptoms: Normal affect, Normal mood - Skin Skin Temperature: Warm Skin Moisture: Dry Skin Color: Normal Course - Re-evaluation Re-evalutation: 08/06/20 20:12 Patient presented with constipation. She states she has is all the time when she is . I offered the patient a trial of something by mouth such as possibly lactulose. Patient declined this. I then offered the patient an enema which she initially declined but then agreed to the enema. We gave the patient a soapsuds enema without relief. I then told the patient we could try different type of enema such as a molasses enema. Or we could try something orally. P atient declined both of these options. then stated that the patient has diarrhea when she drinks milk and wanted to try to give the patient milk. I then offered the patient milk however patient was not amenable to this treatment either. Patient then asked for a few minutes to think. I left the room when I came back and noticed the patient and were walking in the [place] towards the exit. Patient stated that she was going to leave. I offered to give the patient a prescription however patient stated she did not want any prescriptions. Patient would not wait for discharge instructions and left the emergency department with her . - Vital Signs Vital signs: Temp Pulse Resp BP Pulse Ox 98.6 F 98 20 128/80 H 99 08/06/20 18:23 08/06/20 18:23 08/06/20 18:23 08/06/20 18:23 08/06/20 18:23 - Laboratory Result Diagrams: 08/06/20 16:15 08/06/20 16:15 Laboratory results interpreted by me: 08/06/20 08/06/20 16:15 16:15 WBC 12.2 H Hgb 11.7 L Hct 35.9 L MCH 26.2 L RDW 16.5 H Lymph % (Auto) 6.4 L Absolute Neuts (auto) 10.6 H Seg Neutrophils % 86.8 H Sodium 134.4 L BUN 5 L Albumin 3.4 L Discharge - Discharge Clinical Impression: Constipation Qualifiers: Constipation type: other constipation type Qualified Code(s): K59.09 - Other constipation Condition: Stable Disposition: HOME, SELF-CARE Instructions: Constipation ([facility]) Additional Instructions: Please follow-up with your SENIOR MANAGING DIRECTOR as soon as possible
[2020-08-06 18:24] VITALS: BP 128/80
== END 2020-08-06 20:22 | disposition home or self-care (01) ==
LOC: ER 14:14
DX: O99.612 Diseases of the digestive system complicating pregnancy, second trimester (principal); K59.09 Other constipation; K60.2 Anal fissure, unspecified; O22.42 Hemorrhoids in pregnancy, second trimester; O99.512 Diseases of the respiratory system complicating pregnancy, second trimester; J45.909 Unspecified asthma, uncomplicated; O26.892 Other specified pregnancy related conditions, second trimester; R00.0 Tachycardia, unspecified; Z91.048 Other nonmedicinal substance allergy status; Z3A.27 27 weeks gestation of pregnancy
CPT/HCPCS: 99283; 36415; 85025; 80053; J3490

== ENCOUNTER 2020-09-05 21:27 | Emergency (ER) | payer MEDICAID ==
--- NOTE | 2020-09-05 22:11 | ER Document Report ---
HPI - HPI Patient complains to provider of: Skin rash Time Seen by Provider: 09/05/20 21:59 Onset: Other - 1 month Onset/Duration: Waxing and waning Pain Level: Denies Context: Patient presents with pruritic skin rash for the past 4 weeks. Patient states area started to the abdomen but she does have a few scattered lesions to the extremities behind the knees and at the base of her neck. Patient is currently 31 weeks . Patient does have a history of asthma. Patient denies any new foods medications or detergents. Associated Symptoms: denies: Fever, Headache Exacerbated by: Denies Relieved by: Denies Similar symptoms previously: No Recently seen / treated by doctor: Yes - ROS ROS below otherwise negative: Yes Systems Reviewed and Negative: Yes All other systems reviewed and negative - CONSTITUTIONAL Constitutional: DENIES: Fever, Chills - NEURO Neurology: DENIES: Headache - RESPIRATORY Respiratory: DENIES: Coughing - GASTROINTESTINAL Gastrointestinal: DENIES: Nausea, Patient vomiting - REPRODUCTIVE Reproductive: REPORTS: : - MUSCULOSKELETAL Musculoskeletal: DENIES: Back Pain - DERM Skin Color: Normal Skin Problems: Rash Past Medical History - General Information source: Patient - Social History Smoking Status: Never Smoker Chew tobacco use (# tins/day): No Frequency of alcohol use: None Drug Abuse: None Occupation: None Lives with: Family Family History: Reviewed & Not Pertinent - Past Medical History Cardiac Medical History: Denies: Hx Coronary Artery Disease, Hx Heart Attack, Hx Hypertension Pulmonary Medical History: Reports: Hx Asthma - USES INHALERS Neurological Medical History: Denies: Hx Cerebrovascular Accident, Hx Seizures Renal/ Medical History: Denies: Hx Peritoneal Dialysis GI Medical History: Reports: Hx Gastroesophageal Reflux Disease Musculoskeletal Medical History: Denies Hx Arthritis, Reports Hx Musculoskeletal Trauma Psychiatric Medical History: Reports: Hx Attention Deficit Hyperactivity Disorder, Hx Bipolar Disorder, Hx Depression, Hx Schizophrenia Past Surgical History: Reports: Hx Cholecystectomy - Immunizations Immunizations up to date: Yes Hx Diphtheria, Pertussis, Tetanus Vaccination: Yes - 2018 Vertical Provider Document - CONSTITUTIONAL Agree With Documented VS: No - Heart rate 106 Exam Limitations: No Limitations - INFECTION CONTROL TRAVEL OUTSIDE OF THE [place] IN LAST 30 DAYS: No - HEENT HEENT: Atraumatic, Normocephalic - NECK Neck: Normal Inspection, Supple - RESPIRATORY Respiratory: Breath Sounds Normal, No Respiratory Distress - CARDIOVASCULAR Cardiovascular: Regular Rhythm, No Murmur, Tachycardia - GI/ABDOMEN Gastrointestinal: Abdomen Soft, Abdomen Non-Tender - MUSCULOSKELETAL/EXTREMETIES Musculoskeletal/Extremeties: MIRZA LEVY - NEURO Level of Consciousness: Awake, Alert, Appropriate Motor/Sensory: No Motor Deficit - DERM Integumentary: Warm, Dry, Rash - dry skin, erythematous scaling patches and papular lesions to abdomen, few scattered lesions to forearms and at the base of her neck. Course - Re-evaluation Re-evalutation: 09/06/20 00:07 Normal liver function test results, suspect likely eczematous flareup at this time. Discussed with patient plan of care. Patient encouraged to follow-up with her [facility] for a recheck. - Vital Signs Vital signs: Temp Pulse Resp BP Pulse Ox 97.8 F 125 H 18 149/93 H 96 09/05/20 21:32 09/05/20 21:32 09/05/20 21:32 09/05/20 21:32 09/05/20 21:32 - Laboratory Results Laboratory Results Interpreted: 09/06/20 00:06 Labs- All tests 24 hr 09/05/20 23:00 Total Bilirubin 0.3 Direct Bilirubin 0.2 Neonat Total Bilirubin Not Reportable Neonat Direct Bilirubin Not Reportable Neonat Indirect Bili Not Reportable AST 17 ALT 18 Alkaline Phosphatase 120 Total Protein 5.9 L Albumin 3.0 L Critical Laboratory Results Reviewed: No Critical Results - Radiology Results Critical Radiology Results Reviewed: No Critical Results Discharge - Discharge Clinical Impression: Skin rash Condition: Stable Disposition: HOME, SELF-CARE Instructions: Atopic Dermatitis (Eczema) ([facility]), Topical Steroid Cream or Ointment ([facility]) Additional Instructions: Return immediately for any new or worsening symptoms Followup with your primary care provider, call tomorrow to make a followup appointment You may use Benadryl [id number] to help with itching Keep skin moisturized with an lotion such as Cetaphil, Lubriderm, Aquaphor or CeraVe Prescriptions: Triamcinolone Acetonide [Aristocort 0.1% Cream] 1 applic TP BID #60 gm Referrals: FANY STRAUSS DO [NO LOCAL MD] - Follow up as needed
[2020-09-05 23:49] LABS: ALKALINE PHOSPHATASE 120 U/L (38-126); ASPARTATE AMINO TRANSFERASE 17 U/L (14-36); BILIRUBIN,DIRECT 0.2 mg/dL (0.0-0.4); BILIRUBIN,TOTAL 0.3 mg/dL (0.2-1.3); TOTAL PROTEIN 5.9 g/dL (6.3-8.2)
[2020-09-06 00:18] VITALS: BP 138/79
== END 2020-09-06 00:15 | disposition home or self-care (01) ==
LOC: ER 21:27
DX: O26.893 Other specified pregnancy related conditions, third trimester (principal); R21 Rash and other nonspecific skin eruption; O99.513 Diseases of the respiratory system complicating pregnancy, third trimester; J45.909 Unspecified asthma, uncomplicated; Z3A.31 31 weeks gestation of pregnancy
CPT/HCPCS: 36415; 80076; 99283

== ENCOUNTER 2020-09-14 22:34 | Emergency (ER) | payer MEDICAID | END 2020-09-14 22:50 | disposition left against medical advice (07) | LOC: ER 22:34 | DX: Z53.21 Procedure and treatment not carried out due to patient leaving prior to being seen by health care provider (principal) ==

== ENCOUNTER 2020-09-20 14:08 | Emergency (ER) | payer MEDICAID ==
[2020-09-20 14:38] VITALS: BP 121/69
--- NOTE | 2020-09-20 14:54 | ER Document Report ---
ED Medical Screen (RME) - General Chief Complaint: Abdominal Pain Stated Complaint: VOMITING/BACK PAIN Time Seen by Provider: 09/20/20 14:40 Mode of Arrival: Ambulatory Information source: Patient TRAVEL OUTSIDE OF THE [place] IN LAST 30 DAYS: No - HPI Patient complains to provider of: , abdominal pain, vomiting Notes: 09/20/20 14:53 Patient is 34 weeks here with complaints of back pain and lower abdominal cramping that started today. She also states that she vomited 3 times and there was a clot of blood in her vomit. She is a G2, P1. Patient states that initially she went to labor and delivery and they sent her down here to be evaluated. Due to the fact that the patient is having back pain and abdominal cramping and is over 20 weeks , she will go back to labor and delivery to ensure that she is not having labor pain. Once this has been cleared, the patient can return to the emergency department for further evaluation regarding her vomit. - Related Data Allergies/Adverse Reactions: paper tape Allergy (Mild, Uncoded 09/20/20 14:39) Home Medications: b6/unison. priolsec. prenatals. zoloft Past Medical History - Social History Chew tobacco use (# tins/day): No Frequency of alcohol use: None Drug Abuse: None - Past Medical History Cardiac Medical History: Denies: Hx Coronary Artery Disease, Hx Heart Attack, Hx Hypertension Pulmonary Medical History: Reports: Hx Asthma - USES INHALERS Denies: Hx Bronchitis, Hx COPD, Hx Pneumonia Neurological Medical History: Denies: Hx Cerebrovascular Accident, Hx Seizures Renal/ Medical History: Denies: Hx Peritoneal Dialysis GI Medical History: Reports: Hx Gastroesophageal Reflux Disease Musculoskeltal Medical History: Denies Hx Arthritis, Reports Hx Musculoskeletal Trauma Psychiatric Medical History: Reports: Hx Attention Deficit Hyperactivity Disorder, Hx Bipolar Disorder, Hx Depression, Hx Schizophrenia Past Surgical History: Reports: Hx Cholecystectomy - Immunizations Immunizations up to date: Yes Hx Diphtheria, Pertussis, Tetanus Vaccination: Yes - 2017 Physical Exam - Vital signs Vitals: Temp Pulse Resp BP Pulse Ox 98.1 F 107 H 18 121/69 100 09/20/20 14:36 09/20/20 14:36 09/20/20 14:36 09/20/20 14:36 09/20/20 14:36 Course - Vital Signs Vital signs: Temp Pulse Resp BP Pulse Ox 98.1 F 107 H 18 121/69 100 09/20/20 14:36 09/20/20 14:36 09/20/20 14:36 09/20/20 14:36 09/20/20 14:36
== END 2020-09-20 14:45 | disposition admitted as inpatient to this hospital (09) ==
LOC: ER 14:08 → EDSTATUS 14:17 → ER 14:45
DX: O26.93 Pregnancy related conditions, unspecified, third trimester (principal); M54.9 Dorsalgia, unspecified; R10.30 Lower abdominal pain, unspecified; Z3A.34 34 weeks gestation of pregnancy

== ENCOUNTER 2020-09-20 14:53 | Outpatient (CLI) | payer MEDICAID ==
[2020-09-20 15:53] LABS: APPEARANCE,URINE SLIGHTLY-CLOUDY; BILIRUBIN,URINE NEGATIVE (NEGATIVE); COLOR,URINE AMBER; GLUCOSE, URINE NEGATIVE (NEGATIVE); KETONES,URINE TRACE mg/dL (NEGATIVE); LEUKOCYTE ESTERASE,URINE TRACE (NEGATIVE); NITRITE,URINE NEGATIVE (NEGATIVE); PROTEIN,URINE 100 mg/dL (NEGATIVE)
[2020-09-20] MEDS ORDERED: ONDANSETRON HCL INJ/PF 4 MG/2 ML SDV IV ONE (16:13)
[2020-09-20] MEDS ORDERED: RINGERS SOLUTION,LACTATED 1,000 ML IV PRN (16:13)
[2020-09-20 16:17] LABS: URINE AMPHETAMINES SCREEN NEGATIVE; URINE BARBITURATES SCREEN NEGATIVE; URINE BENZODIAZEPINES SCREEN NEGATIVE; URINE COCAINE SCREEN NEGATIVE; URINE MARIJUANA (THC) SCREEN NEGATIVE; URINE METHADONE SCREEN NEGATIVE; URINE PHENCYCLIDINE SCREEN NEGATIVE
[2020-09-20] MEDS ORDERED: ONDANSETRON HCL INJ/PF 4 MG/2 ML SDV ONE (16:43)
[2020-09-20] MEDS ORDERED: DEXTROSE 5%-WATER 250 ML IV PRN (17:16)
--- NOTE | 2020-09-20 17:36 | Non Stress Test Report ---
Non Stress Test Datetime Report Generated by CPN: 09/20/2020 17:36 DEMOGRAPHIC EGA NST: 33.6 MONITORING Monitor Explained: Monitor Explained; Test Explained; Patient Verbalized Understanding Time on Monitor: 09/20/2020 17:05 Time off Monitor: 09/20/2020 17:30 NST Duration: 25 NST INTERVENTIONS NST Interventions: PO Hydration Physician Notified NST: Dr Kirill BABY A: [id number] BABY A Movement : Present Contraction Frequency : irregular FHR Baseline : 125 Accelerations : 15X15 Decelerations : None Variability : Moderate 6-25bpm NST Review: Meets Criteria for Reactive NST NST Review and Verified By : C. [place] RN NST Results: Reactive NST COMMENTS NST Comments: MD on unit NST REPORT Report Trigger: Send Report
== END 2020-09-20 18:16 | disposition home or self-care (01) ==
LOC: LC 14:53
PROVIDERS: ATTEND Obstetrics & Gynecology
DX: O36.8130 Decreased fetal movements, third trimester, not applicable or unspecified (principal); Z3A.33 33 weeks gestation of pregnancy; O26.893 Other specified pregnancy related conditions, third trimester; E86.0 Dehydration
CPT/HCPCS: 81001; 80307; 59025; J2405